=== PATIENT | male | born 1985 | race Caucasian/White ===

== ENCOUNTER 2022-03-01 02:33 | Emergency (ER) | payer MEDICAID ==
[~2022-03-01] VITALS: Ht 182.9 cm; Wt 111.1 kg
[2022-03-01] MEDS ORDERED: CLEOCIN HCL300 MG PO (02:49)
--- OUTSIDE RECORDS SUMMARY | 2022-03-01 03:52 | XMS ---
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 [facility] VISIT COUNT (12 MO.) 1 [facility] [address] TOTAL 4 NOTE: Visits indicate total known visits. ED/UCC VISIT TRACKING (12 MO.) 03/01/2022 02:34 [facility] TYPE: Emergency COMPLAINT: - DENTAL PAIN 02/28/2022 06:27 [facility] [place] TYPE: Emergency DIAGNOSES: - Other specified disorders of teeth and supporting structures - tooth abscess 02/27/2022 17:16 [facility] [place] TYPE: Emergency DIAGNOSES: - Dental Pain - Periapical abscess without sinus 07/08/2021 19:42 [facility] [place] TYPE: Emergency COMPLAINT: - Back Pain DIAGNOSES: - Back Pain - Dorsalgia, unspecified - Back Pain INPATIENT VISIT TRACKING (12 MO.) No inpatient visits to display in this time frame [email or web address]
[2022-03-01] MEDS ORDERED: HYDROCODON-ACE1 EA10 PO (05:35)
[2022-03-01] MEDS ORDERED: CEFDINIR300 MG PO (05:35)
== END 2022-03-01 05:46 | disposition home or self-care (01) ==
LOC: ED 02:33
DX: K04.7 Periapical abscess without sinus (principal); L03.90 Cellulitis, unspecified; Z88.0 Allergy status to penicillin; Z79.899 Other long term (current) drug therapy
CPT/HCPCS: 36415; 70487; 80048; 85025; 99284-25; A9270; J1885; J2270; Q9967